=== PATIENT | female | born 1995 | race Caucasian/White ===

== ENCOUNTER 2023-11-07 09:22 | Emergency (ER) | payer BC, SELFPAY ==
[2023-11-07 09:26] VITALS: BP 171/114
[2023-11-07 09:44] VITALS: BMI 23.9
[2023-11-07 09:46] VITALS: BP 131/81
[2023-11-07 10:00] VITALS: BP 128/90
[2023-11-07 11:00] VITALS: BP 117/83
[2023-11-07 11:14] LABS: HCG, Urine Qualitative Screen Negative
--- NOTE | 2023-11-07 11:16 | ED.GENMED ---
History of Present Illness
General
Chief Complaint: Fainting/Passed Out
Source: patient and significant other
Exam Limitations: none
Time Seen by Provider: 11/07/23 09:53
Travel History
Have you had any contact with someone who has COVID-19?: No
Do you have any symptoms of coronavirus? Fever > 100 degrees, chills, cough, shortness of breath, sore throat, loss of taste or smell, muscle aches, or headache?: Yes
Symptoms:: +COVID
History of Present Illness
History of Present Illness:
27-year-old female who presents after she passed out. The patient states she stubbed her toe on the edge of her bed and had severe pain. She states she tried to get to the bed but then woke up on the floor. She was diagnosed with COVID on a home
test over the weekend. Patient states that she has a history of passing out with pain. She has passed out several times in her life. Significant other states that she went to get up on the bed but then just slumped over to the floor. She did not
injure herself. She actually states her toe feels better. After about 10 to 15 seconds she was awake. Significant other does state that she has some tremulousness. No postictal phase. Patient denies head injury
Past History
Past History
ED Past Medical History: Other (History of vasovagal syncope)
Phy Exam
Physical Exam
Physical Exam:
CONSTITUTIONAL Patient alert and oriented to person, place and time. Well-appearing. Vital signs reviewed.
HEAD atraumatic, normocephalic.
EYES eyelids normal to inspection, Pupils equally round and reactive to light, Extraocular muscles intact, Conjunctiva normal, Sclera normal.
NECK normal range of motion, Trachea midline, no jugular venous distention.
RESPIRATORY CHEST No respiratory distress noted, Chest expansion equal, Bilateral breath sounds clear.
CARDIOVASCULAR regular rate and rhythm, Heart sounds normal.
BACK normal inspection, no obvious deformities
UPPER EXTREMITY range of motion normal, Motor strength normal, no cyanosis, no edema.
LOWER EXTREMITY range of motion normal, Motor strength normal, no cyanosis, no edema.
NEURO Speech normal, No focal motor deficits, Constantine coma scale 15, Memory normal, Cranial Nerves intact to screening exam.
SKIN skin warm, dry, and normal in color.
PSYCHIATRIC patient oriented to person place and time, Normal affect.
Course
Orders/Labs/Results
Orders:
Orders
11/07/23 10:20
HCG, Urine Qualitative Screen Urgent
Date Specimen was Collected: 11/07/23
Time Specimen was Collected: 10:22
Test Result ONCE
11/07/23 10:21
Electrocardiogram (*1) Urgent
Reason for Study: Syncope
EKG- Treatment ONCE
Vital Signs
Initial and Last Documented VS:
Initial Vital Signs
Temp Pulse Resp BP Pulse Ox
98.9 F 106 20 171/114 100
11/07/23 09:26 11/07/23 09:26 11/07/23 09:26 11/07/23 09:26 11/07/23 09:26
Last Documented Vital Signs
Temp Pulse Resp BP Pulse Ox
98.9 F 106 20 128/90 99
11/07/23 09:26 11/07/23 09:26 11/07/23 09:26 11/07/23 10:00 11/07/23 10:30
MDM/Problems Addressed
MDM/Problems Addressed:
Vasovagal syncope, toe injury
*Pulse Oximetry
Patient hypoxic: no
*EKG
Interpreted by ED Provider?: Yes
Interpretation: normal
Rate: normal
Rhythm: sinus
[place]: normal axis
Interval: normal interval
Ischemia: no ischemia
*Critical Care Note
Total Time (30-74mins, 75-104mins- exclusive of procedures): Not Applicable
Patient Management
Escalation/DeEscalation of care consider admission/obs:
Patient appears well. Clearly vasovagal event as there was no postictal phase and occurred after a sudden pain event. EKG normal. hCG negative
ED Attending Note
-
Portions of this chart may have been created with voice recognition software.� Occasional wrong word or��sound alike� substitutions may have occurred due to the inherent limitations of voice recognition software.
Discharge Plan
Departure
Patient Disposition: Home (Routine Discharge)
Date of Disposition: 11/07/23
Time of Disposition:
Patient with high blood pressure during this ER visit?: No
Discharge Problem:
Syncope, vasovagal, Injury of toe
Instructions: Syncope (Fainting) (DC), BLOOD PRESSURE, Contusion
Referrals:
NONE,* [Family Provider] -
Activity Restrictions/Additional Instructions:
Please see your doctor in the next 3 to 5 days for follow-up and reevaluation. Return visit for chest pain, palpitations, worsening of symptoms or any other concerns
Interventions
Interventions:
*Risk Screen - Suicide Last Done: 11/07/23 09:44
*General Assessment Last Done: 11/07/23 09:44
*Neglect/Abuse Screening Last Done: 11/07/23 09:44
*ED COVID-19 Vaccine History Last Done: 11/07/23 09:26
ED- Cardiac Assessment Last Done: 11/07/23 10:18
ED- Neurological Assessment Last Done: 11/07/23 09:44
Discharge Date and Time
Print Language: CHINESE
== END 2023-11-07 11:33 | disposition home or self-care (01) ==
LOC: EMR 09:22
PROVIDERS: EMERGENCY PHYSICIAN Emergency Medicine
DX: R55 Syncope and collapse (principal); S99.929A Unspecified injury of unspecified foot, initial encounter; W22.03XA Walked into furniture, initial encounter; U07.1 COVID-19
CPT/HCPCS: 99284; 81025; 93005